=== PATIENT | female | born 1950 | race Caucasian/White ===

== ENCOUNTER 2017-06-30 06:39 | Day surgery (SDC) | payer OTHER, BC ==
[2017-06-29 10:18] VITALS: BMI 35.6
[2017-06-30] MEDS ORDERED: VASOPRESSIN 20 UNITS/ML VIAL IV ONE (07:29)
[2017-06-30] MEDS ORDERED: LIDOCAINE HCL/PF 2% SDV 5ML VIAL ONE (09:16)
[2017-06-30] MEDS ORDERED: PROPOFOL 20 ML ONE ×2 (09:16→09:47)
[2017-06-30] MEDS ORDERED: ceFAZolin SODIUM 1 GM VIAL ONE (09:16)
[2017-06-30] MEDS ORDERED: MIDAZOLAM HCL 2 MG/2 ML SINGLE DOSE VIAL ONE (09:16)
--- NOTE | 2017-06-30 09:32 | HP ---
History & Physical Update - History History: No Change - Physical Physical: No Change - Assessment Assessment: No Change - Plan Plan: No Change
[2017-06-30] MEDS ORDERED: ceFAZolin SODIUM 1 GM VIAL IVPB ONE (09:44)
[2017-06-30] MEDS ORDERED: DEXAMETHASONE SOD PHOSPHATE 4 MG/1 ML VIAL ONE (10:14)
[2017-06-30] MEDS ORDERED: IBUPROFEN 800 MG/8 ML IJ IVPB PRN (10:41)
[2017-06-30] MEDS ORDERED: ONDANSETRON 4 MG/2 ML VIAL IVPUSH PRN (10:41)
[2017-06-30] MEDS ORDERED: ACETAMINOPHEN 1000 MG/100 ML VIAL (NON FORMULARY) IVPB PRN (10:48)
[2017-06-30] MEDS ORDERED: ATROPINE SULFATE 1 MG/10 ML DISP.SYRIN ONE (11:17)
[2017-06-30] MEDS ORDERED: CEFAZOLIN 2 GM/D5W 2 GM/50 ML ML IVPB ONE ×2 (14:15→14:45)
[2017-06-30] MEDS ORDERED: oxyCODONE HCL 5 MG TABLET PO PRN (14:22)
[2017-06-30] MEDS ORDERED: ACETAMINOPHEN 325 MG TABLET (FP) PO PRN (14:22)
--- NOTE | 2017-06-30 15:06 | OP ---
Operative Note - Note: Operative Date: 06/30/17 Pre-Operative Diagnosis: stress incontinence, prolapse Operation: transvaginal hysterectomy with bilateral oophrectomy, suburetheral sling Surgeon: Merlin Rosales Carousel Attendant: Aida Landeros Anesthesiologist/AIR OPERATIONS MANAGER: Delaney Delgado Anesthesia: General Specimens Removed: uterus, bilateral ovaries Fluid Volume Replaced (mls): 1,100 Operative Report Dictated: Yes
--- NOTE | 2017-06-30 15:07 | SURG ---
Surgery Veneer Measurer Note Veneer Measurer: Aida Landeros PA-C Date of Service: 06/30/17 Diagnosis: stress incontinence, prolapse Procedure: transvaginal hysterectomy with bilateral oophrectomy, suburetheral sling I was present for the entirety of the operative procedure. For further detail, please refer to operative report. Visit type - Case Type Case Type: Scheduled Admission - Emergency Emergency Visit: No - New patient This patient is new to me today: Yes Date on this admission: 06/30/17
--- NOTE | 2017-06-30 16:01 | OP ---
DATE OF OPERATION: 06/30/2017 PREOPERATIVE DIAGNOSIS: Complete uterovaginal prolapse, stress urinary incontinence, probable enterocele, cystocele, and rectocele. POSTOPERATIVE DIAGNOSIS: Complete uterovaginal prolapse, stress urinary incontinence, probable enterocele, cystocele, and rectocele. PROCEDURE PERFORMED: Vaginal hysterectomy with bilateral salpingo-oophorectomy, and enterocele repair, sling, urethropexy, vaginal suspension to the uterosacral cardinal ligament complex, anterior and posterior colporrhaphy. PRIMARY SURGEON: Merlin Rosales M.D. PROCEDURE: After adequate anesthesia, patient was prepped and draped in dorsal lithotomy position. A dilute solution of pitressin was injected circumferentially around the cervix. A circumferential incision was made around the cervix. The anterior and posterior cul-de-sacs were entered without any difficulty. The uterosacral/cardinal ligament complex, followed by the uterine artery, followed by the ovarian ligament clamped, cut, and suture ligated. The uterus was removed. Ovaries and tubes were identified and removed without any difficulty. Enterocele sac was closed off at its neck using 0 Vicryl suture in circumferential stitch. In the midurethral area, an incision was made, and this perivesical fascia was dissected away, plicated on itself using 2-0 Vicryl suture in interrupted fashion. The midurethral area was dissected off the space of Retzius. A transvaginal tape sling were then inserted at the appropriate anatomical location. Cystoscopy was performed to note no foreign bodies in the bladder and blue dye emanating from both ureteral orifices after some methylene blue was given intravenously. Minimal tension was applied to the sling arms. Sling arms were then covered with skin. Skin closed using Dermabond. The anterior vaginal wall closed using 2-0 Vicryl suture in continuos fashion. The uterosacral/cardinal ligament complex prior to closure were then sutured to the vaginal cuff in a Nelson's culdoplasty type procedure. Once again, once the cuff was closed, a vertical incision was made on the back wall of the vagina and perirectal fascia dissected away, plicated out using 0 Vicryl suture in an interrupted fashion. Rectal examination confirmed no foreign bodies. The back wall of the vagina was then closed using 2-0 Vicryl suture in continuous fashion. Rectal examination was negative for any foreign bodies. Marcio [id number]
[2017-06-30] MEDS ORDERED: IBUPROFEN 400 MG TABLET (FP) PO PRN ×2 (16:06→22:06)
[2017-06-30] MEDS: LACTATED RINGERS SOLUTION 1,000 ML IV SCH (21:25)
[2017-07-01 02:32] VITALS: PULSE 82
[2017-07-01] MEDS: LACTATED RINGERS SOLUTION 1,000 ML IV SCH (05:46)
[2017-07-01] MEDS ORDERED: [UNRECOGNIZED DRUG - OTHER] PO SCH (10:00)
[2017-07-01] MEDS ORDERED: LACTOBACILLUS ACIDOPHILUS 1 EACH TAB (FP) PO SCH (10:00)
[2017-07-01] MEDS ORDERED: ESCITALOPRAM OXALATE 10 MG TABLET (FP) PO SCH (10:00)
[2017-07-01] MEDS ORDERED: MAGNESIUM PO SCH (10:00)
[2017-07-01] MEDS ORDERED: MAGNESIUM OXIDE PO SCH (10:00)
[2017-07-01] MEDS ORDERED: CHOLECALCIFEROL (VITAMIN D3) 1,000 UNIT TABLET (FP) PO SCH (10:00)
--- NOTE | 2017-07-01 10:29 | PN ---
Progress Note (short form) - Note Progress Note: Anesthesiology Post-op POD#1 s/p vaginal hysterectomy with bilateral salpingoopherectomy under GA. Pt. is sitting-up in bed. She feels well, denies pain or n/v. She is tolerating clear liquids. VSS. No apparent anesthesia-related issues.
[2017-07-01 13:22] VITALS: BP 122/58; TEMP 98.6
--- NOTE | 2017-07-07 09:28 | PATH ---
Surgical Pathology Report Patient Name: DAIJA OLIVARES [facility]. Rec. #: [id number] /Age/Gender: 1950 (Age: 67) / F Account: [id number] Location: AMBULATORY SURG Taken: 06/30/2017 Received: 06/30/2017 Reported: 07/07/2017 Physicians: Merlin Rosales M.D. Specimen(s) Received A: UTERUS AND CERVIX B: RIGHT OVARY C: LEFT OVARY Clinical History Uterine prolapse, stress incontinence Final Diagnosis A. UTERUS AND CERVIX, HYSTERECTOMY: UTERUS AND CERVIX, 109 GRAMS, WITH LEIOMYOMATA, SUBSEROSAL ADENOMYOSIS, ENDOMETRIUM WITH CYSTIC ATROPHY, AND CERVIX WITH CHRONIC INFLAMMATION. B. RIGHT OVARY, OOPHERECTOMY: BENIGN POSTMENOPAUSAL OVARY C. LEFT OVARY, OOPHERECTOMY: BENIGN POSTMENOPAUSAL OVARY WITH BENIGN SEROUS CYST, AND PORTIONS OF FALLOPIAN TUBE FIMBRIA. Electronically Signed Josiah Berkowitz M.D. Gross Description A. Received in formalin labeled "uterus, cervix," is a 109 g uterus with an attached cervix and no attached adnexa. The specimen measures 9 cm from superior to inferior, 5 cm from left to right and 4.1 cm from anterior to posterior. The serosa is benjamin-baptiste with a focal bulging nodule at the fundus. The attached cervix measures 3 cm in length and averages 2.8 cm in diameter. The ectocervix is pink-benjamin, smooth and glistening. The endocervix is unremarkable. The endometrial cavity measures 3.8 cm in length and 2.7 cm from cornu to cornu. The endometrium is benjamin and averages 0.1 cm in thickness. The myometrium displays multiple intramural nodules, measuring up to 1.3 cm in greatest dimension. The cut surface of the nodules is benjamin, firm to rubbery and displays whorled architecture. No areas of hemorrhage or necrosis are identified. The remaining myometrium is benjamin and measures up to 2 cm in thickness. Duco Polisher sections are submitted in 8 cassettes as follows: 1-anterior cervix; 2-posterior cervix; 8-2-cpxpiarx endomyometrium; 2-0-rsngnlnnh endomyometrium; 7-intramural nodules; 8-serosal bulge. B. Received in formalin labeled "right ovary," is a 2.1 x 1.0 x 0.7 cm ovary. The outer surface is benjamin, convoluted and smooth. Sectioning reveals unremarkable ovarian parenchyma. The specimen is serially sectioned and entirely submitted in one cassette. C. Received in formalin labeled "left ovary," is a 2.3 x 1.1 x 0.6 cm ovary. The outer surface is benjamin, convoluted and smooth. Sectioning reveals a 1.0 cm in greatest dimension serous cyst. The remaining ovarian parenchyma is unremarkable. The specimen is serially sectioned and entirely submitted in 2 cassettes. 07/01/2017 [facility]07/01/2017
== END 2017-07-01 12:30 | disposition home or self-care (01) ==
LOC: JASU-SURG 06:39 → JASUSAT 06:39 → J3W 14:01 → JASUSAT 07-01 12:30
PROVIDERS: ATTEND Obstetrics & Gynecology Female Pelvic Medicine and Reconstructive Surgery
PROC: 0UT77ZZ Resection of Bilateral Fallopian Tubes, Via Natural or Artificial Opening (ICD-10-PCS; 2017-06-30)
PROC: 0UQF7ZZ Repair Cul-de-sac, Via Natural or Artificial Opening (ICD-10-PCS; 2017-06-30)
PROC: 0USG7ZZ Reposition Vagina, Via Natural or Artificial Opening (ICD-10-PCS; 2017-06-30)
PROC: 0UT97ZZ Resection of Uterus, Via Natural or Artificial Opening (ICD-10-PCS; 2017-06-30)
PROC: 0TSD0ZZ Reposition Urethra, Open Approach (ICD-10-PCS; principal; 2017-06-30 09:00)
PROC: 0UT27ZZ Resection of Bilateral Ovaries, Via Natural or Artificial Opening (ICD-10-PCS; 2017-06-30 09:00)
DX: N81.4 Uterovaginal prolapse, unspecified (principal); N39.3 Stress incontinence (female) (male)
CPT/HCPCS: 86850; 86900; 86901; 88305-TC; 88307-TC; 94760